=== PATIENT | female | born 1945 | race Caucasian/White ===

== ENCOUNTER 2018-01-20 14:41 | Emergency (ER) | payer BC, OTHER ==
[~2018-01-20] VITALS: Ht 160 cm; Wt 77.1 kg
[~2018-01-20 14:41] MED LIST: ACETAMINOPHEN-1 EAC1 ORAL; CYCLOBENZAPRINE10 MG ORAL; IBUPROFEN600 MG ORAL; NKM; NORCO 5-325 TA1 EACH ORAL; TRAMADOL HCL50 MG ORAL
[2018-01-20 15:08] VITALS: BP 148/77
[2018-01-20] MEDS ORDERED: PREDNISONE10 MG ORAL (15:15)
[2018-01-20] MEDS ORDERED: HYDROCORTISONE30 G2 TP (15:15)
--- NOTE | 2018-01-20 15:15 | Emergency Room Report ---
History of Present Illness General Chief Complaint: Skin Rash/Abscess Source: Patient, Medical Record Present Illness HPI 72-year-old female patient presents ER complaining of multiple pruritic bumps on her bilateral lower legs. Reports present for 2 days. Reports has been taking Benadryl and putting iodine on her rashes without relief of symptoms. Denies bleeding. Denies streaking. Denies having animal at home. denies fever , chest pain, shortness of breath. Denies history of high blood pressure or diabetes. Denies other acute symptoms. Denies vomiting. Allergies: Coded Allergies: No Known Allergies (Unverified , 11/14/12) Patient History Past Medical History: see triage record Reviewed Nursing Documentation: PMH: Agreed; PSxH: Agreed Nursing Documentation-PMH Past Medical History: No History, Except For Review of Systems All Other Systems: negative except mentioned in HPI Physical Exam Vital Signs Date Time Temp Pulse Resp B/P (MAP) Pulse Ox O2 Delivery O2 Flow Rate FiO2 01/20/18 14:55 97.7 82 18 160/77 96 Room Air 97.7 Sp02 EP Interpretation: reviewed, normal General Appearance: well appearing, no apparent distress, alert, GCS 15, non- toxic Head: normocephalic, atraumatic Eyes: bilateral eye normal inspection, bilateral eye PERRL ENT: hearing grossly normal, normal pharynx, no angioedema, normal voice, uvula midline, moist mucus membranes Neck: full range of motion Respiratory: lungs clear, normal breath sounds, no rhonchi, no respiratory distress, no accessory muscle use, no wheezing, speaking full sentences Cardiovascular #1: regular rate, rhythm, no edema Genitourinary: no CVA tenderness Musculoskeletal: back normal, digits/nails normal, gait/station normal, normal range of motion, non-tender Neurologic: alert, oriented x3, responsive, motor strength/tone normal, sensory intact Psychiatric: mood/affect normal Skin: other - multiple 1 cm areas of erythematous urticaria, no warmth to touch , no fluctuance or induration, does not come to a point, no draining lesions, raj with pressure Medical Decision Making PA Attestation Dr. Watts is my supervising Physician whom patient management has been discussed with. Diagnostic Impression: Primary Impression: Bug bite Additional Impression: Elevated blood pressure reading ER Course Pt. presents to the ED c/o bug bite. Ddx considered but are not limited to atopic dermatitis, bug bite, urticaria, allergic reaction. Vital signs: are WNL, pt. is afebrile, blood pressure mildly elevated Blood pressure mildly elevated at this time, will continue to monitor. Denies chest pain, shortness of breath, vision changes, does not require acute intervention at ER at this time. Follow with primary care provider discuss further treatment and referral. Advised on low-sodium diet, advised on diet and exercise. ER COURSE: physical exam shows multiple lesions consistent with possible bug bites, Will provide treatment. First dose of prednisone given in the ER for itching symptoms, begin taking prescription tomorrow. Denies history of diabetes or hypertension. Do not scratch, apply cool compresses to affected area. Followup with PCP and request referral to derm as needed. DISCHARGE: -Rx given for hydrocortisone cream. Do not apply to face or skin creases. -Rx given fro prednisone, #2, begin taking tomorrow, first diose provided in the ER. At this time pt. is stable for d/c to home. Patient resting comfortably, in no acute distress, nontoxic appearing. Care plan and follow up instructions have been discussed with the patient prior to discharge. Patient provided with printed patient care instructions, and any necessary prescriptions. Patient instructed to follow-up with primary care provider in 3 - 5 days. Patient questions asked and answered. Patient reports understanding and agreement to treatment plan. ER precautions given. Patient instructed to return to ER immediately for any new or worsening of symptoms including but not limited to increasing SOB, persistent fever. - Please note that this Emergency Department Report was dictated using [employer] tender technology software, occasionally this can lead to erroneous entry secondary to interpretation by the dictation equipment. Last Vital Signs Date Time Temp Pulse Resp B/P (MAP) Pulse Ox O2 Delivery O2 Flow Rate FiO2 01/20/18 14:55 97.7 82 18 160/77 96 Room Air 97.7 Disposition: HOME, SELF-CARE Condition: Stable Scripts Hydrocortisone (Hydrocortisone Cream 2.5%) Y Cream.appl 1 APPLIC TP BID, #28 GM Prov: Gregory Vasques 01/20/18 Prednisone* (PREDNISONE*) 10 Mg Tablet 10 MG ORAL DAILY, #2 TAB 0 Refills Prov: Gregory Vasques 01/20/18 Patient Instructions: Insect Bite, [id number], Managing Your High Blood Pressure Additional Instructions: Followup with primary care provider in 3 -5 days. Request referral to dermatology. Followup with doctor to discuss elevated blood pressure reading. Do not scratch or itch. Apply cool compresses to affected area. Take medications as directed. Do not apply medication to face or skin creases. SE Benadryl drowsiness, do not take prior to drinking, driving, operating heavy machinery. Patient questions asked and answered. ER precautions given, patient instructed to return to ER immediately for any new or worsening of symptoms. [facility] Gregory Vasques Jan 20, 2018 15:15
[2018-01-20 15:25] VITALS: BP 148/77
== END 2018-01-20 16:20 | disposition home or self-care (01) ==
LOC: EMR 15:31
DX: S80.862A Insect bite (nonvenomous), left lower leg, initial encounter (principal); S80.861A Insect bite (nonvenomous), right lower leg, initial encounter; R03.0 Elevated blood-pressure reading, without diagnosis of hypertension; W57.XXXA Bitten or stung by nonvenomous insect and other nonvenomous arthropods, initial encounter; Y92.9 Unspecified place or not applicable
CPT/HCPCS: 99284